=== PATIENT | female | born 1990 | race African-American/Black ===

== ENCOUNTER 2019-01-06 20:23 | Emergency (ER) | payer MEDICAID, MEDICARE ==
[~2019-01-06] VITALS: Ht 172.7 cm; Wt 91.0 kg
[2019-01-06] MEDS ORDERED: IBUPROFEN 600MG TABLET PO ONE (22:15)
[2019-01-06 23:38] VITALS: BP 121/77
== END 2019-01-06 23:38 | disposition home or self-care (01) ==
LOC: ER 20:23
DX: J02.9 Acute pharyngitis, unspecified (principal); M79.18 Myalgia, other site; R50.9 Fever, unspecified; Z88.0 Allergy status to penicillin
CPT/HCPCS: 87070; 87077; 87430; 99283

== ENCOUNTER 2021-01-20 13:17 | Emergency (ER) | payer MEDICAID ==
[~2021-01-20] VITALS: Ht 172.7 cm; Wt 104.0 kg
[2021-01-20 15:17] LABS: BASOPHILS % 0.3 % (0.0-2.0); EOSINOPHILS % 0.8 % (0.0-5.0); HEMATOCRIT. 38.1 % (36.0-48.0); HEMOGLOBIN. 12.5 g/dL (12.0-16.0); LYMPHOCYTES % 22.8 % (20.0-50.0); MEAN CORPUSCULAR HEMOGLOBIN 30.7 pg (28.0-32.0); MEAN CORPUSCULAR VOLUME 93.4 fL (81.0-99.0); MEAN PLATELET VOLUME 8.6 fl (7.4-10.4); MONOCYTES % 9.6 % (2.0-8.0); NEUTROPHILS % 66.5 % (40.0-76.0); PLATELET 274 x1000/uL (130-400); RED BLOOD CELL COUNT 4.08 mill/uL (4.2-5.4); RED CELL DISTRIBUTION WIDTH 13.6 % (11.6-14.6)
[2021-01-20 15:23] LABS: CLARITY URINE CLOUDY (CLEAR); COLOR URINE YELLOW (YELLOW); KETONES URINE NEGATIVE (NEGATIVE); LEUKOCYTE ESTERASE URINE 1+ (NEGATIVE); NITRITE URINE NEGATIVE (NEGATIVE); OCCULT BLOOD URINE NEGATIVE (NEGATIVE); PH URINE 6.5 (4.5-8.0); PROTEIN URINE NEGATIVE (NEGATIVE); SPECIFIC GRAVITY URINE 1.017 (1.005-1.030); UROBILINOGEN URINE 0.2 E.U./dL (0.2-1.0)
[2021-01-20 15:25] LABS: CHLORIDE 109 mEq/L (98-107)
[2021-01-20 15:36] LABS: B-HCG QUANTITATIVE 173 mIU/mL (<3)
[2021-01-20] MEDS ORDERED: NITR-87 MT (16:48)
[2021-01-20 17:22] VITALS: BP 130/72
== END 2021-01-20 17:27 | disposition home or self-care (01) ==
LOC: ER 13:43
DX: N39.0 Urinary tract infection, site not specified (principal); Z88.0 Allergy status to penicillin
CPT/HCPCS: 36415; 76801; 80053; 81003; 81025; 84702; 85025; 86850; 86900; 99283; 99284

== ENCOUNTER 2021-04-11 11:53 | Emergency (ER) | payer MEDICAID ==
[~2021-04-11] VITALS: Ht 172.7 cm; Wt 91.0 kg
[~2021-04-11 11:53] MED LIST: NITR-87 MT
[2021-04-11] MEDS ORDERED: ACETAMINOPHEN 325MG TABLET PO ONE (12:30)
[2021-04-11] MEDS ORDERED: IBUP-2029 MT (14:23)
[2021-04-11 15:12] VITALS: BP 128/99
== END 2021-04-11 15:12 | disposition home or self-care (01) ==
LOC: ER 11:53
DX: S80.02XA Contusion of left knee, initial encounter (principal); Z88.0 Allergy status to penicillin; W18.30XA Fall on same level, unspecified, initial encounter; Y93.89 Activity, other specified; Y92.89 Other specified places as the place of occurrence of the external cause; Y99.8 Other external cause status
CPT/HCPCS: 73562; 99283

== ENCOUNTER 2022-08-07 13:04 | Emergency (ER) | payer MEDICAID ==
[~2022-08-07] VITALS: Ht 172.7 cm; Wt 109.0 kg
[~2022-08-07 13:04] MED LIST changes: +IBUP-2029 MT
[2022-08-07 13:29] VITALS: BP 113/79
[2022-08-07] MEDS ORDERED: OFLO5DRO4 LEFT EAR (14:40)
== END 2022-08-07 14:48 | disposition home or self-care (01) ==
LOC: ER 13:04
DX: H72.92 Unspecified perforation of tympanic membrane, left ear (principal); Z88.0 Allergy status to penicillin
CPT/HCPCS: 81025; 99283

== ENCOUNTER 2023-01-19 09:51 | Emergency (ER) | payer MEDICAID ==
[~2023-01-19] VITALS: Ht 175.3 cm; Wt 91.0 kg
[~2023-01-19 09:51] MED LIST changes: +OFLO5DRO4 LEFT EAR
[2023-01-19 10:25] VITALS: BP 123/84
[2023-01-19] MEDS ORDERED: IBUPROFEN 600MG TABLET PO STA (11:58)
[2023-01-19] MEDS ORDERED: IBUP-2029 PO (14:44)
[2023-01-19] MEDS ORDERED: AZIT250T12 MT (14:44)
== END 2023-01-19 15:09 | disposition home or self-care (01) ==
LOC: ER 09:51
DX: J02.9 Acute pharyngitis, unspecified (principal)
CPT/HCPCS: 99283

== ENCOUNTER 2024-05-25 08:24 | Emergency (ER) | payer MEDICAID ==
[~2024-05-25] VITALS: Ht 175.3 cm; Wt 98.0 kg
[~2024-05-25 08:24] MED LIST changes: +AZIT250T12 MT; +IBUP-2029 PO
[2024-05-25 08:28] VITALS: TEMP 98.3; O2SAT 94
[2024-05-25 09:01] LABS: BASOPHILS % 0.2 % (0.0-2.0); HEMATOCRIT. 40.5 % (36.0-48.0); HEMOGLOBIN. 13.8 g/dL (12.0-16.0); LYMPHOCYTES % 9.7 % (20.0-50.0); MEAN CORPUSCULAR HEMOGLOBIN 31.4 pg (28.0-32.0); MEAN CORPUSCULAR VOLUME 92.3 fL (81.0-99.0); MEAN PLATELET VOLUME 7.9 fl (7.4-10.4); MONOCYTES % 8.9 % (2.0-8.0); NEUTROPHILS % 81.2 % (40.0-76.0); PLATELET 295 x1000/uL (130-400); RED BLOOD CELL COUNT 4.38 mill/uL (4.2-5.4); RED CELL DISTRIBUTION WIDTH 13.4 % (11.6-14.6); WHITE BLOOD COUNT 12.8 x1000/uL (4.5-11.0)
[2024-05-25 09:02] LABS: CHLORIDE 106 mEq/L (98-107); POTASSIUM 3.5 mEq/L (3.5-5.1); SODIUM 136 mEq/L (136-145)
[2024-05-25 09:03] LABS: CALCIUM 9.9 mg/dL (8.7-10.4); CARBON DIOXIDE 23 mEq/L (21-32)
[2024-05-25 09:08] LABS: CREATININE 0.9 mg/dL (0.6-1.0); GLUCOSE 132 mg/dL (70-105); UREA NITROGEN BLOOD 6 mg/dL (9-23)
[2024-05-25 09:10] LABS: ALANINE AMINOTRANSFERASE 13 IU/L (10-49); ALBUMIN 5.1 g/dL (3.2-4.8); ASPARTATE AMINOTRANSFERASE 16 IU/L (<34); BILIRUBIN DIRECT 0.2 mg/dL (<=3.0)
[2024-05-25 09:11] LABS: BILIRUBIN TOTAL 0.5 mg/dL (0.1-1.0); PROTEIN TOTAL 8.1 g/dL (6.0-8.3)
[2024-05-25 09:12] LABS: HCG SCREEN NEGATIVE
[2024-05-25 09:19] LABS: CLARITY URINE CLOUDY (CLEAR); COLOR URINE DARK YELLOW (YELLOW); GLUCOSE URINE NEGATIVE (NEGATIVE); KETONES URINE TRACE (NEGATIVE); LEUKOCYTE ESTERASE URINE 1+ (NEGATIVE); NITRITE URINE NEGATIVE (NEGATIVE); OCCULT BLOOD URINE TRACE (NEGATIVE); PROTEIN URINE 1+ (NEGATIVE); SPECIFIC GRAVITY URINE 1.027 (1.005-1.030)
[2024-05-25 09:32] LABS: BACTERIA URINE TRACE; MUCUS URINE 1+ /lpf (< = 2+); SQUAMOUS EPITHELIAL CELL URINE 2+ /lpf (RARE/1+); TRICHOMONAS URINE 1+; YEAST URINE NONE SEEN
[2024-05-25] MEDS ORDERED: ONDA4TAB11 PO (09:44)
[2024-05-25] MEDS ORDERED: METR-167 MT (09:44)
[2024-05-25 10:07] VITALS: BP 125/79; PULSE 76; RESP 18; O2SAT 99
== END 2024-05-25 10:11 | disposition home or self-care (01) ==
LOC: ER 08:34
DX: A08.4 Viral intestinal infection, unspecified (principal); A59.9 Trichomoniasis, unspecified; Z88.0 Allergy status to penicillin; Z79.899 Other long term (current) drug therapy
CPT/HCPCS: 36415; 80048; 80076; 81003; 84703; 85025; 93005; 99284